=== PATIENT | male | born 1975 | race Caucasian/White ===

== ENCOUNTER → 2017-08-25 | Outpatient (CLI) | payer OTHER ==
--- NOTE | 2017-08-25 10:02 | DIAGNOSTIC IMAGING REPORT ---
PET/CT CLINICAL HISTORY: Pulmonary nodule. Mildly enlarged retroperitoneal lymph nodes end indeterminant pancreatic lesion. COMPARISON STUDY: Report of abdominal CT dated 08/12/2017. The images were not available for comparison. TECHNIQUE: One hour following the IV administration of 10.58 mCi of F-18 FDG, PET/CT examination was performed from the orbital meatal line through the bony pelvis. Noncontrast CT is performed for the purposes of anatomic correlation and attenuation correction. Note that this does not reflect a diagnostic CT examination. Images were reviewed on a separate [employer] independent workstation. Fused images were obtained. Standard uptake values reported are maximum values within the region of interest expressed in gm/mL. FINDINGS: PET FINDINGS: Head and neck: There is expected physiologic activity within the visualized brain parenchyma at the skull base and the salivary glands. Thorax: Evaluation of the thorax demonstrates expected physiologic myocardial activity. No pulmonary nodule is identified as clinically queried. Abdomen and pelvis: There is expected activity within the liver, spleen, kidneys, renal collecting system, and bladder. Low-level bowel activity is likely within physical limits. There is a 1.3 cm ovoid water attenuation lesion identified in the uncinate process of the pancreas on image #144. This was not demonstrably FDG avid PA there are prominent nonspecific upper abdominal lymph nodes. A portacaval node on image #132 measures 1.3 x 3.3 cm. A peripancreatic/heath hepatis node on image #123 measures 3.4 x 2.5 cm. There are shotty retroperitoneal lymph nodes. These are not pathologically enlarged by size criteria. The largest is in the aortocaval region on image 149 and measures 8 mm in short axis. Unenhanced CT images: Metallic foreign bodies are identified deep to the right zygomatic arch and in the left posterior orbit. The visualized paranasal sinuses and mastoid air cells are clear. The salivary and thyroid glands are within normal limits. No cervical lymphadenopathy is identified. The thoracic aorta is normal in caliber. The heart is normal in size and without pericardial effusion. A tiny hiatal hernia is identified. There is no mediastinal, axillary, or hilar adenopathy. There is no airspace consolidation or pleural effusion. The unenhanced liver, gallbladder, spleen, adrenal glands, and kidneys are normal as visualized. Abdominal aorta is normal in caliber noting mild but age advanced atherosclerotic calcification. There is no bowel obstruction. Mild colonic fecal retention is observed. There is no mesenteric, pelvic sidewall, or inguinal lymphadenopathy. The bladder, prostate, and seminal vesicles are normal as visualized. No destructive bony lesion is seen. Mild lumbosacral spondylosis and scoliosis are identified. IMPRESSION: 1. There is a 1.3 cm ovoid/cystic lesion identified in the uncinate process of the pancreas. This was not demonstrably FDG avid and is typical appearance for a sidebranch IPMN. 2. There are mildly enlarged and nonspecific upper abdominal lymph nodes in the heath hepatis and portacaval region. These did not show significant FDG uptake and are of indeterminant significance. A six-month contrast-enhanced abdominal CT scan follow-up is recommended for reassessment. The pancreatic lesion can also be reassessed at this time. 3. The lungs are clear. No pulmonary nodule is identified. 4. Metallic foreign bodies are seen deep to the right zygomatic arch and in the left posterior orbit. This likely precludes future MRI in this patient. 5. Additional findings as above. Electronically signed by: Gil Dave M.D. 08/25/2017 10:01 AM Dictated Date/Time: 08/25/2017 9:42 AM
== END | disposition home or self-care (01) ==
LOC: C.PET 06:59
PROVIDERS: ATTEND Family Medicine
DX: R91.1 Solitary pulmonary nodule (principal)